=== PATIENT | male | born 1955 | race African-American/Black ===

== ENCOUNTER 2018-02-13 22:12 | Emergency (ER) | payer BC ==
[2018-02-14 01:19] LABS: Hemoglobin 13.1 g/dL (14.0-18.0); Mean Corpuscular HGB CONC 31.3 g/dL (32.0-36.0); Mean Corpuscular Hemoglobin 27.5 pg (27.0-31.0); Mean Corpuscular Volume 87.6 fl (80.0-94.0); Mean Platelet Volume 7.6 fL (7.4-10.4); Platelet Count 266 thou/uL (130-400); RBC Distribution Width 13.9 % (11.5-14.5); Red Blood Cell (RBC) Count 4.79 mill/uL (4.70-6.10); White Blood Cell (WBC) Count 11.7 thou/uL (4.8-10.8)
[2018-02-14 01:28] LABS: ALT (SGPT) 24 U/L (8-55); AST (SGOT) 17 U/L (5-34); Alkaline Phosphatase 67 U/L (40-150); Anion Gap 14 mmol/L (10-20); BUN (Urea Nitrogen) 9 mg/dL (8.4-25.7); Bilirubin, Total 0.3 mg/dL (0.2-1.2); Calc. Creatinine Clearance 0 mL/min (70-130); Calcium 9.6 mg/dL (7.8-10.44); Carbon Dioxide 26 mmol/L (22-29); Chloride 102 mmol/L (98-107); Estimated GFR-MDRD 73; Globulin 3.3 g/dL (2.4-3.5); Glucose 149 mg/dL (70-105); Potassium 4.1 mmol/L (3.5-5.1); Protein, Total 7.3 g/dL (6.0-8.3); Sodium 138 mmol/L (136-145)
[2018-02-14 01:44] LABS: Band 9 % (5-11); Lymphocytes 15 % (21-51); MDiff Complete? YES; Monocytes 5 % (0-10); Neutrophil 71 % (42-75)
[2018-02-14] MEDS ORDERED: Acetaminophen 500 MG TAB ONE (03:02)
[2018-02-14] MEDS ORDERED: Sulfameth/Trimethoprim DS 800-160mg TAB ONE (03:06)
[2018-02-14] MEDS ORDERED: Cephalexin 250 MG CAP ONE (03:06)
--- NOTE | 2018-02-14 09:13 | ULT ---
PRELIMINARY REPORT/[facility]/EMERGENTY AFTER-HOURS PROCEDURE US Duplex Left Lower Extremity Veins CLINICAL HISTORY: 62 years old, male; Pain; Other: Lle pain, redness, swelling TECHNIQUE: Real-time duplex ultrasound scan of the left lower extremity veins integrating B-mode two dimensional vascular structure, Doppler spectral analysis, color flow Doppler imaging and compression. COMPARISON: No relevant prior studies available. FINDINGS: Deep veins: No DVT in the visualized common femoral, femoral, proximal deep femoral or popliteal vein s. The veins demonstrate normal color flow, are normally compressible, with normal phasic flow and/or augmentation response. Superficial veins: No thrombus in the visualized great saphenous vein. Soft tissues: Calf edema noted. No popliteal cyst. IMPRESSION: No definite evidence for deep venous thrombosis in the left lower extremity Thank you for allowing us to participate in the care of your patient. Dictated and Authenticated by: Douglas Toledo MD 02/14/2018 2:54 AM Central Time ([place] & [place]) FINAL REPORT VENOUS DUPLEX SONOGRAM LEFT LOWER EXTREMITY PERFORMED ON AN EMERGENCY BASIS: Date: 02/14/18 Time: 0207 hours HISTORY: Left leg pain and edema. FINDINGS: Findings agree with the preliminary report by Leeanne. There is good color and spectral Doppler flow. No sonographic evidence of deep venous thrombosis left lower extremity. POS: OFF
== END 2018-02-14 03:09 | disposition home or self-care (01) ==
LOC: ERS 22:12
DX: L03.116 Cellulitis of left lower limb (principal); E11.9 Type 2 diabetes mellitus without complications; E78.5 Hyperlipidemia, unspecified; I10 Essential (primary) hypertension; Z79.4 Long term (current) use of insulin; Z79.899 Other long term (current) drug therapy
CPT/HCPCS: 36415; 80053; 82550; 83605; 85025

== ENCOUNTER 2022-07-23 16:55 | Inpatient (IN) | payer BC ==
[2022-07-23 18:24] VITALS: BMI 47.4
[2022-07-23] MEDS ORDERED: HYDROcodone/Acetaminophen 5/325 mg Tablet PO PRN (20:50)
[2022-07-23] MEDS ORDERED: Ondansetron ODT 4 MG TAB PO PRN (20:50)
[2022-07-23] MEDS: Acetaminophen 325 MG TAB PO PRN (21:15)
[2022-07-23] MEDS: Sodium Chloride 0.9% 1,000 ML IV SCH (21:15)
[2022-07-23] MEDS: Senokot S 8.6-50 MG TAB PO PRN (21:16)
[2022-07-23] MEDS ORDERED: Dextrose 5% in Water 1,000 ML IV PRN (21:26)
[2022-07-23] MEDS ORDERED: Dextrose 50% Abboject 50 ML SYRINGE SLOW IVP PRN (21:26)
[2022-07-23 23:56] LABS: Hemoglobin 11.8 g/dL (14.0-18.0); Mean Corpuscular HGB CONC 31.5 g/dL (32.0-36.0); Mean Corpuscular Hemoglobin 28.4 pg (27.0-31.0); Mean Corpuscular Volume 90.2 fL (78.0-98.0); RBC Distribution Width 14.4 % (11.5-14.5); Red Blood Cell (RBC) Count 4.17 mill/uL (4.70-6.10); White Blood Cell (WBC) Count 12.9 thou/uL (4.8-10.8)
[2022-07-24 00:06] LABS: #Lymphocytes 1.3 thou/uL (1.20-3.40); #Monocytes 0.7 thou/uL (0.11-0.59); #Neutrophils 10.8 thou/uL (1.40-6.50); %Basophils 0.3 % (0.0-1.0); %Eosinophils 0.3 % (0.0-10.0); %Monocytes 5.6 % (0.0-10.0); %Neutrophils 83.9 % (42.0-75.0); Mean Platelet Volume 7.9 fL (7.4-10.4); Platelet Count 243 thou/uL (130-400); Platelet Morphology Comment Appears Adequate
[2022-07-24 00:08] LABS: Anion Gap 11 mmol/L (10-20); BUN (Urea Nitrogen) 14 mg/dL (8.4-25.7); Calc. Creatinine Clearance 144 mL/min (70-130); Calcium 8.8 mg/dL (7.8-10.44); Carbon Dioxide 26 mmol/L (23-31); Chloride 102 mmol/L (98-107); Estimated GFR 73; Glucose 170 mg/dL (80-115); Potassium 3.3 mmol/L (3.5-5.1); Sodium 136 mmol/L (136-145)
[2022-07-24] MEDS: VANCOMYCIN 2 GRAM/500 ML BAG 2 GM in Premix Bag 1 BAG IVPB SCH ×2 (01:17→12:36)
[2022-07-24 06:15] LABS: Anion Gap 15 mmol/L (10-20); BUN (Urea Nitrogen) 11 mg/dL (8.4-25.7); Calc. Creatinine Clearance 160 mL/min (70-130); Calcium 8.4 mg/dL (7.8-10.44); Carbon Dioxide 18 mmol/L (23-31); Chloride 105 mmol/L (98-107); Estimated GFR 82; Glucose 113 mg/dL (80-115); Potassium 4.1 mmol/L (3.5-5.1); Sodium 134 mmol/L (136-145)
[2022-07-24] MEDS: Acetaminophen 325 MG TAB PO PRN (06:21)
[2022-07-24 08:09] LABS: Hemoglobin 11.9 g/dL (14.0-18.0); Mean Corpuscular HGB CONC 31.8 g/dL (32.0-36.0); Mean Corpuscular Hemoglobin 28.3 pg (27.0-31.0); Platelet Count 262 thou/uL (130-400); RBC Distribution Width 14.2 % (11.5-14.5); Red Blood Cell (RBC) Count 4.22 mill/uL (4.70-6.10); White Blood Cell (WBC) Count 11.9 thou/uL (4.8-10.8)
[2022-07-24] MEDS: Sodium Chloride 0.9% 1,000 ML IV SCH ×2 (08:11→18:13)
[2022-07-24] MEDS: Meclizine HCl 25 MG TAB PO SCH (08:14)
[2022-07-24] MEDS: Senokot S 8.6-50 MG TAB PO PRN (20:57)
[2022-07-24] MEDS ORDERED: Insulin Glargine 30 UNITS/0.3 ML VIAL SC SCH (21:00)
[2022-07-24] MEDS ORDERED: Simvastatin 10 MG TAB PO SCH (21:00)
[2022-07-24] MEDS ORDERED: Aspirin 325 MG TAB PO SCH (21:00)
[2022-07-25] MEDS: Sodium Chloride 0.9% 1,000 ML IV SCH (00:28)
[2022-07-25] MEDS: VANCOMYCIN 2 GRAM/500 ML BAG 2 GM in Premix Bag 1 BAG IVPB SCH (00:59)
[2022-07-25] MEDS: Meclizine HCl 25 MG TAB PO SCH (08:20)
[2022-07-25] MEDS ORDERED: VANCOMYCIN 1.75 GM/500 ML BAG 1.75 GM in Premix Bag 1 BAG IVPB SCH (13:00)
[2022-07-25] MEDS ORDERED: Bisacodyl 5 MG TAB PO PRN (13:32)
[2022-07-25 18:08] VITALS: BP 119/60; TEMP 98.2
== END 2022-07-25 18:27 | disposition home or self-care (01) | DRG 872 ==
LOC: T4-A 18:04
PROVIDERS: ADMIT Internal Medicine; ATTEND Internal Medicine
DX: A41.9 Sepsis, unspecified organism (principal); L03.116 Cellulitis of left lower limb; Z20.822 Contact with and (suspected) exposure to COVID-19; E11.9 Type 2 diabetes mellitus without complications; I10 Essential (primary) hypertension; E78.00 Pure hypercholesterolemia, unspecified; Z88.8 Allergy status to other drugs, medicaments and biological substances; Z79.82 Long term (current) use of aspirin; Z79.84 Long term (current) use of oral hypoglycemic drugs; Z79.4 Long term (current) use of insulin; Z83.3 Family history of diabetes mellitus; Z82.49 Family history of ischemic heart disease and other diseases of the circulatory system; Z83.49 Family history of other endocrine, nutritional and metabolic diseases
CPT/HCPCS: 36415; 36416; 71045; 80048; 80202; 83605; 85025; 85027; J1815; J3370; J7050